=== PATIENT | male | born 1955 ===

== ENCOUNTER 2022-12-11 07:55 | Day surgery (SDC) | payer BC ==
[2022-12-11] MEDS: Polymyxin B/Trimethoprim 10 ML Bottle EYERT SCH ×3 (07:47→09:36)
[2022-12-11] MEDS: Brimonidine 0.2% Ophth Soln 5 ML Bottle EYERT SCH ×3 (07:54→09:36)
[~2022-12-11 07:55] MED LIST: Cefuroxime 10 MG/ML SYRINGE EYERT SCH; Lidocaine 1% PF 2 ML SDV INJECT SCH; Pilocarpine 4% Ophth Soln 15 ML Bot EYERT SCH
[2022-12-11] MEDS: Phenylephrine 2.5% Ophth Soln 2 ML Bot EYERT SCH ×5 (07:59→09:15)
[2022-12-11] MEDS: Tropicamide 1% Ophth Soln 15 ML Bottle EYERT SCH ×4 (08:04→08:55)
[2022-12-11] MEDS: Tetracaine HCl/PF 0.5% 4 ML Bottle EYEBOTH SCH ×4 (09:00→09:25)
[2022-12-11 09:51] VITALS: BP 137/73; PULSE 54
== END 2022-12-11 09:45 | disposition home or self-care (01) ==
LOC: JD.SDS 07:55
PROVIDERS: ATTEND Ophthalmology
DX: E11.36 Type 2 diabetes mellitus with diabetic cataract (principal); H16.103 Unspecified superficial keratitis, bilateral; H02.831 Dermatochalasis of right upper eyelid; H25.811 Combined forms of age-related cataract, right eye; I10 Essential (primary) hypertension; E78.00 Pure hypercholesterolemia, unspecified; G47.33 Obstructive sleep apnea (adult) (pediatric); Z98.890 Other specified postprocedural states; Z79.899 Other long term (current) drug therapy; Z96.1 Presence of intraocular lens
CPT/HCPCS: 66984; A9270; J0697; J3490